=== PATIENT | male | born 1945 | race Caucasian/White ===

== ENCOUNTER 2023-09-02 09:53 | Outpatient (OUT) | payer OTHER, SELFPAY ==
--- NOTE | 2023-09-02 | CT_ITS ---
[address] [address] Patient Name: AUSTIN BARON MRN: [id number] date: 1945 Sex: M Assigned Patient Location: CT Current Patient Location: Accession/Order Number: [id number] Exam Date: 09/02/2023 10:03 Report Date: 09/04/2023 09:08 At the request of: CHRISTINA SUERO Procedure: CT lung screening low-dose EXAMINATION: CT lung screening low-dose HISTORY: former smoker COMPARISON: MRI 08/25/2023 TECHNIQUE: Axial, Coronal, and Sagittal images were created without the administration of IV contrast material. Dose reduction techniques were achieved by using automated exposure control and/or adjustment of mA and/or kV according to patient size and/or use of iterative reconstruction technique. FINDINGS: LUNGS: Scattered calcified and noncalcified pulmonary nodules. The largest noncalcified solid pulmonary nodule is noted along the left major fissure axial image #37 measuring 5.5 x 5 mm. Area of groundglass attenuation is noted in the left upper lobe measuring 1.5 x 0.6 cm axial image 56 PLEURA: No mass, effusion, or pneumothorax. VASCULATURE: No abnormality. AZALEA: No mass or pathologic adenopathy. MEDIASTINUM: Soft tissue attenuation in the anterior mediastinum measuring 1.8 x 1.1 cm possibly a mildly enlarged lymph node CARDIAC: No enlargement or pericardial effusion. Moderate coronary atherosclerosis AORTA: No aneurysm or dissection. CHEST WALL: No mass or axillary adenopathy BONES: No bone lesion or fracture. LIMITED ABDOMEN: Nodular liver contour. Focal 2.1 cm hypodensity right hepatic lobe OTHER: Negative. CT/CT lung screening low-dose IMPRESSION: 2.1 cm right hepatic lobe hypodensity, grossly stable from the prior MRI but suspicious for malignancy Cirrhosis Scattered pulmonary nodules the largest solid nodule 5.5 mm. The largest groundglass nodule 1.5 cm. 6 month follow-up recommended LUNG SCREENING: Lung-RADS Category 3- Probably benign. Probably benign finding(s)- short term follow up suggested; includes nodules with a low likelihood of becoming a clinically active cancer. Six month LDCT. Electronically authenticated by: PA BROWN Date: 09/04/2023 09:08
== END 2023-09-02 09:54 | disposition home or self-care (01) ==
LOC: CT 09:53
PROVIDERS: PCP Family Medicine; Visit Provider Family Medicine
DX: Z87.891 Personal history of nicotine dependence (principal); R91.8 Other nonspecific abnormal finding of lung field
CPT/HCPCS: 71271

== ENCOUNTER 2024-03-19 09:59 | Outpatient (OUT) | payer OTHER, SELFPAY ==
--- NOTE | 2024-03-19 10:04 | CT_ITS ---
[address] [address] Patient Name: AUSTIN BARON MRN: [id number] date: 1945 Sex: M Assigned Patient Location: CT Current Patient Location: CT Accession/Order Number: [id number] Exam Date: 03/19/2024 10:16 Report Date: 03/19/2024 15:49 At the request of: CHRISTINA SUERO Procedure: CT lung screening low-dose EXAMINATION: CT lung screening low-dose HISTORY: other nonspecific abnormal finding of lung field COMPARISON: 09/02/2023 TECHNIQUE: Axial, Coronal, and Sagittal images were created without the administration of IV contrast material. Dose reduction techniques were achieved by using automated exposure control and/or adjustment of mA and/or kV according to patient size and/or use of iterative reconstruction technique. FINDINGS: LUNGS: Bilateral subcentimeter calcified and noncalcified solid pulmonary nodules stable both in number and size from the prior exam the largest along the left superior major fissure measures 5.6 mm axial image #33. Again demonstrated is a stable area of groundglass attenuation in the left upper lobe measuring 1.5 x 0.8 cm axial image 50. No new significant pulmonary nodule or mass PLEURA: No mass, effusion, or pneumothorax. VASCULATURE: No abnormality. AZALEA: No mass or pathologic adenopathy. MEDIASTINUM: Soft tissue attenuation in the anterior mediastinum, stable in appearance CARDIAC: No enlargement or pericardial effusion. CORONARY ARTERIES: Coronary calcifications are heavy. AORTA: No aortic aneurysm. Mild atherosclerosis CHEST WALL: No mass or axillary adenopathy BONES: No bone lesion or fracture. LIMITED ABDOMEN: Stable focal hypodensity at the falciform ligament measuring 2.1 centimeters, grossly stable. Nodular liver contour suggesting cirrhosis OTHER: Negative. CT/CT lung screening low-dose IMPRESSION: LUNG SCREENING: Lung-RADS Category 2- Benign Appearance or Behavior. Nodules with a very low likelihood of becoming a clinically active cancer due to size or lack of growth. 2. Continue annual screening with LDCT in 12 months. Electronically authenticated by: PA BROWN Date: 03/19/2024 15:49
== END 2024-03-19 10:00 | disposition home or self-care (01) ==
LOC: CT 09:59
PROVIDERS: PCP Internal Medicine
DX: R91.8 Other nonspecific abnormal finding of lung field (principal)
CPT/HCPCS: 71271